=== PATIENT | female | born 1985 | race Two or more races ===

== ENCOUNTER 2016-05-09 17:11 | Emergency (ER) | payer MEDICAID ==
--- NOTE | ~2016-05-09 | ER ---
PATIENT'S NAME: EDWARD ESPINOZA [facility] AGE: 31 Y [address] ROOM: [place] [address] LOCATION: ED ADMIT DATE: 05/09/2016 ER/Outpatient Report DISCHARGE DATE: 05/09/2016 FAMILY PHYSICIAN: PHYSICIAN, NO ATTENDING PHYSICIAN: Denice Marks Time of Arrival: 1715 hours. Time of Evaluation: 1755 hours. CHIEF COMPLAINT: Left lower quadrant abdominal pain. HISTORY OF PRESENT ILLNESS: The patient is a 31-year-old female who presents to the emergency department today with chief complaint of left lower quadrant abdominal pain. She reports she is approximately 16 weeks' . She reports this pain started in February and she has a history of similar episodes and that comes and goes. It was worse last night. It is worse upon standing. The patient reports she stands 8 hours a day at work. She has seen an [employer] on the , she has another scheduled appointment on the as well. She does have a history of miscarriage and she is concerned with this. She is a G5, P3 with 1 . She reports it is a sharp-type pain. Denies any vaginal bleeding or vaginal discharge. No fevers or chills. No nausea or vomiting. No diarrhea or constipation. No blood in her stool. No dark tarry stools. No urinary frequency, urgency, or painful urination. Last menstrual period 01/13. PAST MEDICAL HISTORY: None. PAST SURGICAL HISTORY: Hernia, cholecystectomy, and finger surgery. SOCIAL HISTORY: The patient denies any tobacco, alcohol, or illicit drug use. ALLERGIES: NO KNOWN DRUG ALLERGIES. MEDICATIONS: Please see list. PRIMARY CARE DOCTOR: None. [employer] GR[employer]ER: PATIENT'S NAME: EDWARD ESPINOZA [facility] AGE: 31 Y [address] ROOM: [place] [address] LOCATION: ED ADMIT DATE: 05/09/2016 ER/Outpatient Report DISCHARGE DATE: 05/09/2016 FAMILY PHYSICIAN: PHYSICIAN, DEB ATTENDING PHYSICIAN: Denice Marks Dr.. REVIEW OF SYSTEMS: All systems are reviewed by myself and negative with the exception of those discussed in HPI and past medical history. PHYSICAL EXAMINATION: VITAL SIGNS: Weight 84.9 kg, blood pressure 108/57, pulse 67, respiratory rate 20, temperature 98.1, and oxygen saturation 100% on room air. GENERAL: The patient is a 31-year-old female, well developed, well nourished, in no acute distress. HEENT: Head: Normocephalic, atraumatic. Pupils are equal, round, and reactive to light and accommodating. Mucous membranes are moist. NECK: Supple. There is no nuchal rigidity. CARDIOVASCULAR: Regular rate and rhythm. No murmurs, rubs, or gallops. LUNGS: Clear to auscultation bilaterally. No wheezes, rales, or rhonchi. ABDOMEN: Soft. Mild left lower quadrant tenderness to palpation. There is no rebound, rigidity, or guarding. Positive bowel sounds. MUSCULOSKELETAL: The patient moves all 4 extremities. 5/5 muscle strength. SKIN: Warm and dry. There are no rashes or lesions noted. LABORATORY DATA: Labs and x-rays are obtained. CBC is normal. CMP is normal except for an albumin of 2.7. LFTs normal. Serum hCG is 12,542. Urinalysis is unremarkable. A bedside ultrasound was performed by myself, does show a crown- rump length 15 weeks 6 days, femur length 16 weeks, heart rate was 120. A formal ultrasound is obtained, I have discussed the results with the dental technician metal, does show 16-week 6-day fetus, heart rate of 136, normal fluid, normal exam with placenta anterior. There is some evidence of some posterior [place], otherwise normal ultrasound. IMPRESSION: 1. Intrauterine at 16 weeks 6 days. 2. Acute nonsurgical left lower quadrant abdominal pain. 3. Initial visit. EMERGENCY DEPARTMENT COURSE: The patient brought back to the examination room. Seen and evaluated by myself. Laboratory analysis and imaging are obtained as described above. Ultrasound was performed as described above. I have discussed the results with the patient. I have repeated her abdominal exam. She continues to have a nonsurgical abdominal exam at this time. I have discussed the results with her. I have recommend a close followup with her [employer]ER in 2 days for re- evaluation. I have discussed return to care instructions including worsening symptoms, vaginal bleeding, vaginal discharge, or any other concerns, to PATIENT'S NAME: EDWARD ESPINOZA [facility] AGE: 31 Y [address] ROOM: [place], [place] [address] LOCATION: [facility] ADMIT DATE: 05/09/2016 ER/Outpatient Report DISCHARGE DATE: 05/09/2016 FAMILY PHYSICIAN: , DEB ATTENDING PHYSICIAN: Denice Marks return to the emergency department as soon as possible. The patient is agreeable without further questions at this time. DISPOSITION: The patient discharged home in good condition. DO AVNI CORDERO/julienne /[id number] d: 05/10/16233 t: 05/10/16311, OUTPATIENT REPORT
[~2016-05-09 17:11] MED LIST: NORCO 5-325 MG1 TAB PO; PAIN RELIEF650 MG PO; PREFERA OB TAB1 EACH PO
[2016-05-09 17:58] LABS: BILIRUBIN URINE NEGATIVE (NEGATIVE); BLOOD URINE NEGATIVE /UL (NEGATIVE); COLOR URINE YELLOW (YELLOW); GLUCOSE URINE NEGATIVE (NEGATIVE); KETONE URINE NEGATIVE (NEGATIVE); LEUKOCYTES URINE NEGATIVE /UL (NEGATIVE); NITRITE URINE NEGATIVE (NEGATIVE); PROTEIN URINE NEGATIVE (NEGATIVE); SPEC GRAVITY URINE 1.005 (1.003-1.035); TURBIDITY URINE CLEAR (CLEAR); UROBILINOGEN URINE NORMAL (NORMAL)
[2016-05-09 18:23] LABS: BASOPHIL % 0.3 %; EOSINOPHIL # 0.1 K/uL (0.0-0.5); EOSINOPHIL % 1.2 %; HEMATOCRIT 34.1 % (33.0-46.0); HEMOGLOBIN 11.2 g/dL (11.0-15.0); IMMATURE GRANULOCYTE % 0.3 %; LYMPHOCYTE # 1.5 K/uL (0.8-4.0); LYMPHOCYTE % 22.9 %; MCH 28.5 pg (27.0-34.0); MCHC 32.8 gm/dL (32.0-36.5); MCV 86.8 fl (83.0-98.0); MONOCYTE # 0.5 K/uL (0.0-1.0); MONOCYTE % 6.9 %; MPV 10.4 fl (9.4-12.4); NEUTROPHIL # (ANC) 4.6 K/uL (1.8-7.8); NEUTROPHIL % 68.4 %; NRBC % 0 /100WBC (0-0.00); PLATELET COUNT 220 K/uL (150-450); RBC 3.93 M/uL (3.50-5.50); WBC 6.7 K/uL (4.0-11.0)
[2016-05-09 18:45] LABS: ALBUMIN 2.7 gm/dL (3.5-5.0); ALK PHOS 101 IU/L (33-138); ALT 19 IU/L (12-78); AST 19 IU/L (10-40); BLOOD UREA NITROGEN 7 mg/dL (6-24); CALCIUM 8.5 mg/dL (8.5-10.5); CHLORIDE 106 mMol/L (96-110); CO2 26 mMol/L (22-32); CREATININE 0.5 mg/dL (0.5-1.1); ESTIMATED GFR (MDRD EQUATION) > 60; SODIUM 138 mMol/L (135-145); TOTAL BILIRUBIN 0.2 mg/dL (0.0-1.5); TOTAL PROTEIN 6.8 g/dL (6.0-8.4)
== END 2016-05-09 19:10 | disposition disaster alternative care site (69) ==
LOC: GMED 17:11
PROVIDERS: Emergency Medicine; Family Medicine
DX: O99.89 Other specified diseases and conditions complicating pregnancy, childbirth and the puerperium (principal); R10.32 Left lower quadrant pain; Z3A.16 16 weeks gestation of pregnancy; Z90.49 Acquired absence of other specified parts of digestive tract